=== PATIENT | male | born 1955 | race Caucasian/White ===

== ENCOUNTER 2018-07-08 13:17 | Inpatient (IN) | payer OTHER ==
[~2018-07-08] VITALS: Ht 181.6 cm; Wt 91.6 kg
[2018-07-08] MEDS ORDERED: VITA1000 PO (19:26)
[2018-07-08] MEDS ORDERED: MULT1TAB52 PO (19:26)
[2018-07-08] MEDS ORDERED: ATEN50TA PO (19:26)
[2018-07-08] MEDS ORDERED: VITA1TAB19 PO (19:26)
[2018-07-08] MEDS ORDERED: AMLO5TAB10 PO (19:26)
[2018-07-08] MEDS ORDERED: ASCO500T3 PO (19:26)
--- NOTE | 2018-07-08 19:27 | NUR ---
Patient Miko Dial 62, male admitted from [facility] due to N/V and diarrhea for 2 days. He's awake, alert and oriented x4, denies any pain. Attending MD notified and orders received. Patient was oriented to the unit, hospital policies reviewed, call light within reach.
[2018-07-08] MEDS ORDERED: ONDANSETRON PF 4 MG/2 ML VIAL. IV PRN (19:30)
[2018-07-08 19:51] LABS: BASO % 0 % (0-3); EOS # 0.5 x10^3/uL (0.0-0.7); EOS % 8 % (0-3); HEMATOCRIT 40.7 % (36.0-47.0); HEMOGLOBIN 14.2 g/dL (12.0-15.5); LYMPH # 0.9 x10^3/uL (1.0-4.8); LYMPH % 15 % (24-48); MEAN CORPUSCULAR HEMOGLOBIN 33 pg (25-35); MEAN CORPUSCULAR HGB CONC 35 g/dL (31-37); MEAN CORPUSCULAR VOLUME 95 fL (79-100); MONO # 0.7 x10^3/uL (0.0-1.1); MONO % 11 % (0-9); NEUT # 4.2 x10^3uL (1.8-7.7); NEUT % 66 % (31-73); PLATELET COUNT 231 x10^3/uL (140-400); RED CELL DISTRIBUTION WIDTH 13.1 % (11.5-14.5); WHITE BLOOD COUNT 6.4 x10^3/uL (4.0-11.0)
[2018-07-08 19:59] VITALS: BP 140/78
[2018-07-08 20:04] LABS: CALCIUM 8.7 mg/dL (8.5-10.1); CREATININE 0.6 mg/dL (0.6-1.0); GFR 101.6; POTASSIUM 3.3 mmol/L (3.5-5.1)
[2018-07-08 20:10] LABS: ALBUMIN 3.9 g/dL (3.4-5.0); ALBUMIN/GLOBULIN RATIO 1.4 (1.0-1.7); TOTAL BILIRUBIN 0.4 mg/dL (0.2-1.0); TOTAL PROTEIN 6.7 g/dL (6.4-8.2)
[2018-07-08] MEDS: IV NORMAL SALINE 1000ML BAG 1,000 ML IV SCH (20:50)
[2018-07-08 23:25] VITALS: BP 137/84
[2018-07-09] MEDS: IV NORMAL SALINE 1000ML BAG 1,000 ML IV SCH ×3 (01:12→16:57)
[2018-07-09 03:06] VITALS: BP 127/75
[2018-07-09 04:54] LABS: BASO % 1 % (0-3); EOS # 0.7 x10^3/uL (0.0-0.7); EOS % 12 % (0-3); HEMOGLOBIN 13.3 g/dL (12.0-15.5); LYMPH % 18 % (24-48); MEAN CORPUSCULAR HEMOGLOBIN 33 pg (25-35); MEAN CORPUSCULAR HGB CONC 35 g/dL (31-37); MEAN CORPUSCULAR VOLUME 95 fL (79-100); MONO # 0.7 x10^3/uL (0.0-1.1); MONO % 13 % (0-9); NEUT % 56 % (31-73); PLATELET COUNT 205 x10^3/uL (140-400); RED BLOOD COUNT 3.99 x10^6/uL (3.50-5.40); RED CELL DISTRIBUTION WIDTH 13.2 % (11.5-14.5); WHITE BLOOD COUNT 5.4 x10^3/uL (4.0-11.0)
[2018-07-09 05:06] LABS: ALBUMIN 3.5 g/dL (3.4-5.0); ALBUMIN/GLOBULIN RATIO 1.5 (1.0-1.7); CALCIUM 8.5 mg/dL (8.5-10.1); CREATININE 0.7 mg/dL (0.6-1.0); GFR 85.1; POTASSIUM 3.7 mmol/L (3.5-5.1); TOTAL BILIRUBIN 0.5 mg/dL (0.2-1.0); TOTAL PROTEIN 5.9 g/dL (6.4-8.2)
[2018-07-09 07:00] VITALS: BP 136/84
[2018-07-09 10:51] VITALS: BP 132/79
--- NOTE | 2018-07-09 11:56 | PDOC2 ---
GI CONSULT Reason For Consult: Lower GI bleeding HPI: HPI: 62 y/o male transferred from [facility]. In his usual state of health until Thursday. Last week, saw a new doctor at a [facility] in [place] and had labs. H/o hyponatremia, has been told to drink less fluids. This time, further evaluation w/ nephrology was discussed. Had more labs on Thursday - apparently sodium was lower than normal and he was advised to go to the ER when those results were available. On Thursday, he began having diarrhea. No prodrome, recent travel (though went [place] last year), sick contacts (but says his mother who lives with them vomited last week), or use of Pepto-Bismol or iron. First stool in the morning was normal in color and consistency, then changed to watery and "black" - had 4-5 episodes. This continued into Thursday and - Imodium was helpful and he took a couple leftover Cipro. Diarrhea has improved - stooled once overnight and once this morning - the latter was brown and more formed. Very rare heartburn - takes Tums three times a year or less. No dysphagia. Braggadocio queasy at one point, but not vomiting and hungry now. No abd pain. No hematochezia. Typically no issues w/ diarrhea or constipation - usually has 1 stool in the mornings. No weight loss recently (though went to [employer] last year) or change in appetite. No previous EGD. No liver, GB, pancreas, or PUD history. No NSAIDs. Drinks a couple beers or glasses or wine a night along w/ a shot or two. Colonoscopy 2006 (Dr. Staton): normal mucosa in whole colon, internal hemorrhoids. He also reports having a colonoscopy in 08/2016 in [place] that revealed one polyp. It was recommended that he return for screening in 3-5 years considering family history. Family history is significant for his father with colon cancer in his 40s. Later on, he apparently had mouth and prostate cancer. His autopsy showed "recurrent" colon cancer. Our records indicate he also had pancreatic cancer but he doesn't recall this. Hgb and BUN remain WNL. Sodium was 125 @ [facility], now 129. Normal LFTs and lipase. PMH: PMH: HTN, colon polyp cataract removal, left thumb surgery, skin graft, bilateral inguinal hernia repairs (multiple), tonsillectomy FH: Family History: Cancer (father - colon (in his 40s), mouth, prostate; sister - breast (twice); mother - cervical; PGM - lung; MGF and MGM - unknown kind), CAD Social History: Smoke: No ALCOHOL: other (3-4 drinks a night) Drugs: None ROS: GEN: Denies fevers, chills, sweats HEENT: Denies blurred vision, sore throat CV: Denies chest pain RESP: Denies shortness of air, cough GI: Per HPI : Denies hematuria, dysuria ENDO: Denies weight changes NEURO: Denies confusion, dizziness MSK: Denies weakness, joint pain/swelling SKIN: Denies jaundice, pruritus Vitals: Vitals: Vital Signs Date Time Temp Pulse Resp B/P (MAP) Pulse Ox O2 Delivery O2 Flow Rate FiO2 07/09/18 10:51 98.5 70 17 132/79 (96) 98 Room Air 98.5 Labs: Labs: Laboratory Tests Test 07/08/18 19:40 07/09/18 04:00 White Blood Count 6.4 x10^3/uL (4.0-11.0) 5.4 x10^3/uL (4.0-11.0) Red Blood Count 4.30 x10^6/uL (3.50-5.40) 3.99 x10^6/uL (3.50-5.40) Hemoglobin 14.2 g/dL (12.0-15.5) 13.3 g/dL (12.0-15.5) Hematocrit 40.7 % (36.0-47.0) 38.0 % (36.0-47.0) Mean Corpuscular Volume 95 fL (79-100) 95 fL (79-100) Mean Corpuscular Hemoglobin 33 pg (25-35) 33 pg (25-35) Mean Corpuscular Hemoglobin Concent 35 g/dL (31-37) 35 g/dL (31-37) Red Cell Distribution Width 13.1 % (11.5-14.5) 13.2 % (11.5-14.5) Platelet Count 231 x10^3/uL (140-400) 205 x10^3/uL (140-400) Neutrophils (%) (Auto) 66 % (31-73) 56 % (31-73) Lymphocytes (%) (Auto) 15 % (24-48) 18 % (24-48) Monocytes (%) (Auto) 11 % (0-9) 13 % (0-9) Eosinophils (%) (Auto) 8 % (0-3) 12 % (0-3) Basophils (%) (Auto) 0 % (0-3) 1 % (0-3) Neutrophils # (Auto) 4.2 x10^3uL (1.8-7.7) 3.0 x10^3uL (1.8-7.7) Lymphocytes # (Auto) 0.9 x10^3/uL (1.0-4.8) 1.0 x10^3/uL (1.0-4.8) Monocytes # (Auto) 0.7 x10^3/uL (0.0-1.1) 0.7 x10^3/uL (0.0-1.1) Eosinophils # (Auto) 0.5 x10^3/uL (0.0-0.7) 0.7 x10^3/uL (0.0-0.7) Basophils # (Auto) 0.0 x10^3/uL (0.0-0.2) 0.0 x10^3/uL (0.0-0.2) Sodium Level 129 mmol/L (136-145) 129 mmol/L (136-145) Potassium Level 3.3 mmol/L (3.5-5.1) 3.7 mmol/L (3.5-5.1) Chloride Level 94 mmol/L (98-107) 94 mmol/L (98-107) Carbon Dioxide Level 25 mmol/L (21-32) 25 mmol/L (21-32) Anion Gap 10 (6-14) 10 (6-14) Blood Urea Nitrogen 9 mg/dL (7-20) 6 mg/dL (7-20) Creatinine 0.6 mg/dL (0.6-1.0) 0.7 mg/dL (0.6-1.0) Estimated GFR (Cockcroft-Gault) 101.6 85.1 BUN/Creatinine Ratio 15 (6-20) 9 (6-20) Glucose Level 133 mg/dL (70-99) 97 mg/dL (70-99) Calcium Level 8.7 mg/dL (8.5-10.1) 8.5 mg/dL (8.5-10.1) Total Bilirubin 0.4 mg/dL (0.2-1.0) 0.5 mg/dL (0.2-1.0) Aspartate Amino Transf (AST/SGOT) 20 U/L (15-37) 18 U/L (15-37) Alanine Aminotransferase (ALT/SGPT) 26 U/L (14-59) 28 U/L (14-59) Alkaline Phosphatase 77 U/L (46-116) 71 U/L (46-116) Total Protein 6.7 g/dL (6.4-8.2) 5.9 g/dL (6.4-8.2) Albumin 3.9 g/dL (3.4-5.0) 3.5 g/dL (3.4-5.0) Albumin/Globulin Ratio 1.4 (1.0-1.7) 1.5 (1.0-1.7) Lactate Dehydrogenase 146 U/L (81-234) Allergies: Coded Allergies: No Known Drug Allergies (Unverified , 07/08/18) Medications: Current Medications Medications (Trade) Dose Ordered Sig/Pari Route PRN Reason Start Time Stop Time Status Last Admin Dose Admin Sodium Chloride 1,000 ml @ 125 mls/hr Q8H IV 07/08/18 19:30 07/09/18 07:57 PE: GEN: NAD HEENT: Atraumatic, PERRL LUNGS: CTAB HEART: RRR ABD: NABS, S/ND/NT EXTREMITY: No edema SKIN: No rashes, no jaundice NEURO/PSYCH: A & O 3 A/P: A/P: Chronic hyponatremia - sent to [facility] for this reason Diarrhea, "black stools" - improving CRC screen, h/o polyp - UTD (08/2016) FH CRC - father in his 40s -- Reviewed w/ Dr. Fajardo - EGD probably a good idea considering family history. Had some broth at 8:00 a.m. and some sips of water - NPO now, EGD this afternoon. ?renal eval re: hyponatremia Note plans to check C Diff and cortisol. JENNIFER NUNN Jul 09, 2018 11:56
[2018-07-09] MEDS ORDERED: IV RINGERS,LACTATED 1000ML 1,000 ML IV SCH (14:17)
[2018-07-09] MEDS ORDERED: fentaNYL PF VIAL 100 MCG/2 ML VIAL IV PRN ×2 (14:30)
[2018-07-09] MEDS ORDERED: LIDOCAINE 1% PF 2 ML VIAL. ID PRN (14:30)
[2018-07-09] MEDS ORDERED: MIDAZOLAM HCL/PF 2 MG/2 ML VIAL. IV PRN (14:30)
[2018-07-09 15:00] VITALS: BP 141/84
--- NOTE | 2018-07-09 15:14 | HP ---
ADMIT DATE: 07/09/2018 HISTORY OF PRESENT ILLNESS: The patient is a 62-year-old male patient who was apparently evaluated by his primary care physician at the [facility] for what seemed to be annual physical and apparently lab works were done, showed that he has hyponatremia. His lab work was done before he started having diarrhea last Thursday and apparently he has had about 2-3 episodes of black tarry stool on Thursday, Thursday and yesterday he presented to the Emergency Room of [facility]. He denied any nausea or vomiting. Denied any abdominal pain. Denied any chills, rigors or fever. He has never had similar symptoms like this before, has not had any antibiotic treatment for the last 2-3 months. He went to [place] about a year ago; however, has not had any problems there or since he came back. He was investigated at the Emergency Room and his hemoglobin was 14, hematocrit 40 with normal white cell count and platelets. His chemistry showed that his sodium was low at 125 and potassium was in the upper limit of normal at 5.1. However, his BUN and creatinine are normal and his stool for occult blood was positive and therefore he was transferred to [facility] for further evaluation and treatment. PAST MEDICAL HISTORY: Significant for hypertension for which he is on amlodipine and atenolol. PAST SURGICAL HISTORY: Significant for bilateral cataract extraction, 3 inguinal hernia repairs before he was 6 years old and 2 incisional hernia repairs with mesh done over the last few years. He has had colonoscopy in 2017 with polypectomy. ALLERGIES: He has no known drug allergies. MEDICATIONS: He is on atenolol 50 mg once a day, amlodipine 5 mg once a day. He is also on vitamin B complex 1 tablet once a day, ascorbic acid 500 mg once a day, vitamin international units once a day, and multivitamin 1 tablet once a day. FAMILY HISTORY: His sister at age of 50 because of breast cancer. Father in his 60s because of colon cancer, he apparently was diagnosed in his mid 40s, and the colon cancer has relapsed and basically was the cause of his , although he was diagnosed also with prostate cancer. His mother is still alive at age of 85, has hypothyroidism and osteoporosis. SOCIAL HISTORY: He is , has 2 daughters. Quit smoking about 15-17 years ago. He used to smoke cigars and pipe tobacco. He continued to drink alcohol almost on a daily basis, drinks 2 glasses of wine or 2 beers every night. Does not use any drugs. 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 REVIEW OF SYSTEMS: The patient denied any blurring of vision. He had bilateral cataract extraction, but denied any glaucoma or macular degeneration. Denied any earache, tinnitus or sensorineural deafness. Denied any nosebleeds, stuffy nose or postnasal drip. Denied any sore throat, sore tongue, toothache, hoarseness of voice or difficulty swallowing. Denied any nausea, vomiting but did complain of diarrhea with black stool. Denied any dysuria, frequency, hematuria. Denied any chest pain, shortness of breath, orthopnea, or paroxysmal nocturnal dyspnea. Denied any cough, phlegm or hemoptysis. PHYSICAL EXAMINATION: GENERAL: On arrival, he looked well and was clearly in no apparent respiratory distress. No pallor, jaundice, cyanosis, or thyromegaly. No jugular venous distension. No limb edema. VITAL SIGNS: His heart rate was 71, blood pressure was 140/78, temperature was 99.2, respiratory rate was 20, and oxygen saturation was 94% on room air. HEAD, EYES, EARS, NOSE AND THROAT: Showed normocephalic, atraumatic. NECK: Supple. HEART: Showed normal first and second heart sounds. No gallop, rub or murmur. CHEST: Clear to auscultation. No crepitation or rhonchi. ABDOMEN: Distended, soft, nontender. No guarding or rigidity. No organomegaly. All hernial orifices intact. Bowel sounds normal. NEUROLOGIC: He was awake, alert, responding appropriately. All cranial nerves intact. EXTREMITIES: He moves extremities without difficulty. He ambulates without assistance or assistive devices. LABORATORY DATA: While at [facility] showed his white cell count to be 5800; hemoglobin 14; hematocrit 41; MCV 96; and platelet count 228,000. His prothrombin time was 10, INR of 1, aPTT was not done. His stool for occult blood was positive. His serum sodium was 125, potassium 5.1, chloride 92, bicarbonate 27, anion gap of 6, BUN of 14, creatinine 0.8, estimated GFR was 98 mL per minute. Total protein was 6.7, albumin 3.9, calcium was 8.8. Glucose 109. His total bilirubin, AST, ALT, alkaline phosphatase were normal. ASSESSMENT AND PLAN: In summary, this is a 62-year-old male patient who was transferred to [facility] with recurrent bouts of diarrhea with black stool. His stool for occult blood positive and was also noted to have hyponatremia and hyperkalemia, although his kidney function is normal. Nobody else in the family has similar symptoms. He did have a strong family history of colon cancer, his father was diagnosed initially with colon cancer in his mid 40s and at the age of 60 because of colon cancer. He himself had a colonoscopy done in 2017 and at that time, they found a polyp that was removed. All his symptoms started about last Thursday. In fact, his diarrhea started after his lab work done at his primary care physician's office, which showed that he has hyponatremia. My plan is to put him on a clear liquid diet. I will start him on normal saline at 125 mL per hour and we checked his labs on arrival to [facility], which showed that his H and H remained stable at 14 and 40; however, his chemistry showed his serum sodium is slightly up at 129 and the potassium was 3.3. My plan is to consult the Gastroenterology team and also repeat his labs again on Thursday morning and decide on further management accordingly. Given hyponatremia and slightly hyperkalemia and possibility of Timi disease is there, he is not on any SSRI or any other medication that might cause inappropriate antidiuretic hormone syndrome. MARLON LAY MD DR: KIN/anjelica JOB#: [id number] / [id number]
[2018-07-09] MEDS ORDERED: PROPOFOL 20 ML IV ONE (15:19)
[2018-07-09] MEDS ORDERED: LIDOCAINE 2% PF 5 ML VIAL. ONE (15:19)
--- NOTE | 2018-07-09 15:34 | PDOC4 ---
PROCEDURE Procedure EGD/biopsies Indication: Melena Meds: per anesthesia Findings: E--Grade B esophagitis at 40cm. G--8-10 mm nodule/polyp in very distal body, greater curve. Possibly pancreatic rest; biopsied. Random antral biopsies as well. D--Normal to third portion. Louis. well. IMP: Reflux esophagitis Gastric nodule/polyp--appears benign. No bleeding site seen; pseudomelena? REC: PO PPI. ADAT Continue w/u of hyponatremia. Continue surveillance colonoscopies on regular basis. Currently up to date. Thanks. VARGHESE DAVISON MD Jul 09, 2018 15:34
[2018-07-09] MEDS: PANTOPRAZOLE 40 MG TABLET.DR. PO SCH (16:56)
[2018-07-09 19:50] VITALS: BP 135/74
[2018-07-09 23:00] VITALS: BP 142/86
[2018-07-10] MEDS: IV NORMAL SALINE 1000ML BAG 1,000 ML IV SCH (02:54)
[2018-07-10 03:00] VITALS: BP 137/86
--- NOTE | 2018-07-10 03:07 | PN ---
DATE: 07/09/2018 SUBJECTIVE: The patient is resting, slightly propped up in bed, in no apparent respiratory distress. He has had no nausea, no vomiting, no abdominal pain. He did have diarrhea this morning, but stool seemed to be brownish in color. PHYSICAL EXAMINATION: GENERAL: When I examined him, he looked well and was clearly in no apparent respiratory distress, pale, but no pallor, jaundice, cyanosis or thyromegaly. No jugular venous distention. No lower limb edema. VITAL SIGNS: Her heart rate was 70, blood pressure was 136/84, temperature was 99.1, respiratory rate was 16, and oxygen saturation was 97%. The rest of clinical examination is stable. His intake was 1675, no output was recorded. LABORATORY DATA: His serum sodium was 129, serum potassium was 3.7, chloride 94, bicarbonate 25, anion gap of 10, BUN 6, creatinine 0.7, estimated GFR was 85 mL per minute, glucose 97, calcium was 8.5. Total bilirubin, AST, ALT, alkaline phosphatase were normal. LDH was 146. Total protein was 5.9, albumin 3.5. His hemoglobin was 13.3, hematocrit was 38 with normal white cell count and platelets with normal manual differential. ASSESSMENT AND PLAN: 1. Hyponatremia, mild hyperkalemia, slightly improved. The patient has normal kidney function. 2. Recurrent bouts of diarrhea with bloody stool; however, his H and H remain stable. The patient has no nausea or vomiting, no hematemesis, no abdominal pain. Will continue with IV fluid, continue with Zofran. I have consulted Gastroenterology to evaluate the patient and I would check also his morning cortisol as well as TSH tomorrow and decide on further management accordingly. MARLON LAY MD DR: KIN/anjelica JOB#: [id number] / [id number]
[2018-07-10 07:00] VITALS: BP 144/95
[2018-07-10] MEDS: PANTOPRAZOLE 40 MG TABLET.DR. PO SCH (08:51)
[2018-07-10 08:53] LABS: HEMATOCRIT 39.6 % (39.0-53.0); HEMOGLOBIN 13.4 g/dL (13.0-17.5)
[2018-07-10 09:03] LABS: CALCIUM 8.9 mg/dL (8.5-10.1); CREATININE 0.7 mg/dL (0.7-1.3); GFR 114.6
[2018-07-10] MEDS ORDERED: PANT20TA2 PO (10:57)
[2018-07-10 11:07] VITALS: BP 153/90
--- NOTE | 2018-07-10 11:44 | NUR ---
This nurse went over discharge instructions, and education with patient on fluid restrictions, lab values, and s/s of low sodium. Family at bedside, this patient was walked out by Carmine MURPHY.
--- NOTE | 2018-07-14 10:07 | PATHOLOGY ---
[facility] Accession Number: [id number] . 01 Material submitted: . PART A: stomach - DISTAL BODY POLYP. Modifiers: body, distal PART B: stomach - RANDOM ANTRUM BIOPSIES . 01 Clinical history: . GI bleed . 02 Diagnosis: A. Gastric biopsy, distal body polyp: - Focally polypoid segment of gastric body mucosa showing congestion and slight chronic inflammation. . B. Gastric antrum random biopsies: - Congestion and mild chronic inflammation. (JPM:olamide; 07/13/2018) QMS/07/14/2018 . 02 Comment: Sections of the distal gastric body polyp biopsy reveal focally polypoid segment of gastric body mucosa showing congestion and slight chronic inflammation. There are no adenomatous changes or evidence of malignancy. . Sections of the random gastric antral biopsies reveal segments of gastric antral and antral/body transition mucosa showing congestion and very mild chronic inflammation. A properly controlled immunoperoxidase stain for Helicobacter is negative for Helicobacter organisms. There is no evidence of malignancy. (JPM:olamide; 07/13/2018) . . Special stain performed: Immunoperoxidase stain for Helicobacter on B1. . 02 Electronically signed: . Erickson Shine MD, Pathologist NPI- [id number] . 01 Gross description: . A. Received in formalin labeled "Miko Dial, distal body polyp," is a single segment of hager soft tissue measuring 0.3 cm in maximum dimension. The specimen is entirely submitted in cassette A1. . B. Received in formalin labeled "Miko Dial, random antrum biopsies," is a single segment of hager soft tissue measuring 0.5 cm in maximum dimension. The specimen is entirely submitted in cassette B1. After thorough examination of the specimen container, no additional tissue was recovered. (TSD; 07/12/2018) TOB/TOB . 02 Pathologist provided ICD-10: K29.50 . 02 CPT . 780521, 501551, [id number] Specimen Comment: A courtesy copy of this report has been sent to Specimen Comment: [phone], . Specimen Comment: Report sent to / DR LAY Specimen Comment: A duplicate report has been generated due to demographic updates. Performed at: 01 [facility] [address], [place] [id number] MD Lisandro Nick MD Phone: [phone] Performed at: 02 [facility] [address] [place], [place] [id number] MD Erickson Shine MD Phone: [phone]
== END 2018-07-10 11:40 | disposition home or self-care (01) | DRG 378 ==
LOC: 6 SOUTH 17:00 → EDSEX 17:00
PROVIDERS: ADMIT Internal Medicine; ATTEND Internal Medicine
PROC: 0DB68ZX Excision of Stomach, Via Natural or Artificial Opening Endoscopic, Diagnostic (ICD-10-PCS; principal; 2018-07-08)
DX: K92.1 Melena (principal); E87.1 Hypo-osmolality and hyponatremia; C18.9 Malignant neoplasm of colon, unspecified; C25.9 Malignant neoplasm of pancreas, unspecified; K21.0 Gastro-esophageal reflux disease with esophagitis; K31.7 Polyp of stomach and duodenum; C61 Malignant neoplasm of prostate; E87.5 Hyperkalemia; I10 Essential (primary) hypertension; K40.20 Bilateral inguinal hernia, without obstruction or gangrene, not specified as recurrent; Z80.0 Family history of malignant neoplasm of digestive organs; Z80.3 Family history of malignant neoplasm of breast; Z80.42 Family history of malignant neoplasm of prostate; Z82.62 Family history of osteoporosis; Z86.010 Personal history of colon polyps; Z87.891 Personal history of nicotine dependence; Z98.41 Cataract extraction status, right eye; Z98.42 Cataract extraction status, left eye
CPT/HCPCS: 36415; 45380; 80048; 80053; 82533; 83615; 84443; 85014; 85018; 85025; 87493; 88305; 88342; J2001; J2704; J7030